=== PATIENT | male | born 1955 | race Two or more races ===

== ENCOUNTER → 2017-10-17 | Emergency (ER) | payer OTHER ==
[~2017-10-17] VITALS: Ht 175.3 cm; Wt 93.0 kg
[~2017-10-17] MED LIST: ALTACE5 MG; CRESTOR40 MG; KETO10TA2 PO; ORPHENADRINE C100 MG PO
== END | disposition home or self-care (01) ==
LOC: ER 22:30
DX: R10.33 Periumbilical pain (principal); R10.84 Generalized abdominal pain

== ENCOUNTER 2017-11-20 08:46 | Outpatient (CLI) | payer OTHER | END 2017-11-20 08:49 | disposition home or self-care (01) | LOC: LAB 08:46 | DX: R10.13 Epigastric pain (principal); K40.20 Bilateral inguinal hernia, without obstruction or gangrene, not specified as recurrent ==

== ENCOUNTER 2018-08-19 05:45 | Day surgery (SDC) | payer OTHER ==
[2018-08-19] MEDS ORDERED: NEURONTIN800 MG PO (09:39)
[2018-08-19] MEDS ORDERED: IBUPROFEN600 MG PO (09:40)
[2018-08-19] MEDS ORDERED: PERCOCET 5-3251 EACH PO (09:40)
[2018-08-19] MEDS ORDERED: POLY119PG PO (09:40)
[2018-08-19] MEDS ORDERED: SURFAK240 M1 PO (09:41)
== END 2018-08-19 13:15 | disposition home or self-care (01) ==
LOC: CIR.AMB 05:45
DX: K40.20 Bilateral inguinal hernia, without obstruction or gangrene, not specified as recurrent (principal); K42.0 Umbilical hernia with obstruction, without gangrene; K43.6 Other and unspecified ventral hernia with obstruction, without gangrene